=== PATIENT | male | born 1995 | race Caucasian/White ===

== ENCOUNTER 2016-12-20 21:06 | Emergency (ER) | payer SELFPAY ==
--- NOTE | 2016-12-20 21:36 | ED CLINICAL REPORT ---
Clinical Report - Physicians/Mid Levels [facility] [address] [place] [address] 12/20/2016 21:08 Patient: EDUIN BROWN Time Seen: 21:16; initial patient contact. Arrived- By private vehicle. Historian- patient. HISTORY OF PRESENT ILLNESS Chief Complaint: SKIN RASH. This started about 1 week ago and is still present. It is described as itchy. Not painful. It has been generalized in location (Genital). A possible cause has been identified. No recent medication or insect bite. Similar symptoms previously: Many times. Recent medical care: Not recently seen/assessed. REVIEW OF SYSTEMS No fever or chills. He has had genital lesion(s). All systems otherwise negative, except as recorded above. PAST HISTORY Negative. Problems: no known problems. Surgeries: No history of previous surgery. Additional Surgeries: no known surgeries. Medications: None. Allergies: None. SOCIAL HISTORY Current every day smoker. History of drug use: heroin, methamphetamines. ADDITIONAL NOTES The nursing notes have been reviewed. PHYSICAL EXAM Vital Signs: 12/20/2016 21:16 BP: 111/69. HR: 88. RR: 15. O2 saturation: 98%. Temp: 98.4 F. Pain level now: 0/10. Have been reviewed as normal. Appearance: Alert. Oriented X3. No acute distress. Skin: Rash present on the penis (genital warts). Neuro: Oriented X 3. No motor deficit. PROGRESS AND PROCEDURES Disposition: Discharged home in good and improved condition. Condition: good. CLINICAL IMPRESSION Genital lesion- condyloma acuminatum. INSTRUCTIONS Your Current Medications: CONTINUE TAKING THE FOLLOWING MEDICATIONS: None*. Prescription Medications: Podofilox Topical 0.5% Apply to affected area BID for 3 days followed by 4 days of no treatment. May repeat up to 4 cycles Disp 3.5 mL No refills. Follow-up: Screening today revealed the patient's blood pressure to be in the normal range. Follow-up with: Juanito Begum MD, Urology, , [address], [id number] Follow up in about two weeks. Call for an appointment. (Electronically signed by Latrell Olivares Dr. 12/20/2016 21:47)
--- NOTE | 2016-12-20 21:36 | ED CLINICAL REPORT ---
Clinical Report - Physicians/Mid Levels [facility] [address] [place] [address] 12/20/2016 21:08 Patient: EDUNI BROWN Time Seen: 21:16; initial patient contact. Arrived- By private vehicle. Historian- patient. HISTORY OF PRESENT ILLNESS Chief Complaint: SKIN RASH. This started about 1 week ago and is still present. It is described as itchy. Not painful. It has been generalized in location (Genital). A possible cause has been identified. No recent medication or insect bite. Similar symptoms previously: Many times. Recent medical care: Not recently seen/assessed. REVIEW OF SYSTEMS No fever or chills. He has had genital lesion(s). All systems otherwise negative, except as recorded above. PAST HISTORY Negative. Problems: no known problems. Surgeries: No history of previous surgery. Additional Surgeries: no known surgeries. Medications: None. Allergies: None. SOCIAL HISTORY Current every day smoker. History of drug use: heroin, methamphetamines. ADDITIONAL NOTES The nursing notes have been reviewed. PHYSICAL EXAM Vital Signs: 12/20/2016 21:16 BP: 111/69. HR: 88. RR: 15. O2 saturation: 98%. Temp: 98.4 F. Pain level now: 0/10. Have been reviewed as normal. Appearance: Alert. Oriented X3. No acute distress. Skin: Rash present on the penis (genital warts). Neuro: Oriented X 3. No motor deficit. PROGRESS AND PROCEDURES Disposition: Discharged home in good and improved condition. Condition: good. CLINICAL IMPRESSION Genital lesion- condyloma acuminatum. INSTRUCTIONS Your Current Medications: CONTINUE TAKING THE FOLLOWING MEDICATIONS: None*. Prescription Medications: Podofilox Topical 0.5% Apply to affected area BID for 3 days followed by 4 days of no treatment. May repeat up to 4 cycles Disp 3.5 mL No refills. Follow-up: Screening today revealed the patient's blood pressure to be in the normal range. Follow-up with: Juanito Begum MD, Urology, , [address] [facility], [id number] Follow up in about two weeks. Call for an appointment. (Electronically signed by Latrell Olivares Dr. 12/20/2016 21:47)
--- NOTE | 2016-12-20 21:36 | ED NURSING NOTES ---
Clinical Report - Nurses [facility] [address] [place] [address] 12/20/2016 21:08 Patient: EDUIN BROWN TRIAGE Triage time 21:16 Dec 20 2016. Chief Complaint: GENITAL LESION and ("I have warts on my foreskin" pt had them "froze, but I never followed up"). Alert. No acute distress. --21:22 Guy Kenny R.N. 21:16 12/20/16. BP: 111/69. HR: 88. RR: 15. O2 saturation: 98%. Temp: 98.4 F. Pain level now: 0/10. --21:22 Guy Kenny R.N. Weight: 68 kg stated. Height/Length: 72 inches Per Patient. BMI: 20.3. --21:17 Guy Kenny R.N. Medications None. --21:17 Guy Kenny R.N. Medication/allergy information source: the patient. --21:22 Guy Kenny R.N. Allergies None. --21:17 Guy Kenny RKia History Historian: patient. This is a recurrent problem. (2 months). No testicular pain, discomfort with urination or urgency of urination. Able to void. 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 PAST MEDICAL HX: Immunizations: up-to-date. SOCIAL HX: Smoker- current status unknown (cigarette). History of drug use: heroin, methamphetamines, marijuana. No alcohol use. ABUSE ASSESSMENT: No report of abuse. SELF HARM ASSESSMENT: A self harm assessment was performed. The patient answered "no" to the question "Do you have thoughts of harming or killing yourself?". FALL RISK ASSESSMENT: Fall risk assessment completed. No fall risk identified. NUTRITIONAL RISK ASSESSMENT: The nutritional risk assessment revealed no deficiencies. FUNCTIONAL ASSESSMENT: Functional assessment: no impairments noted. LEARNING NEEDS ASSESSMENT: The learning needs assessment revealed no barriers. SKIN INTEGRITY ASSESSMENT: Skin integrity risk assessment completed. No skin integrity risk identified. --21:22 Guy Kenny R.N. PROBLEMS: no known problems. ADDITIONAL SURGERIES: no known surgeries. Interventions ID band on patient. To treatment room. --21:22 Guy Kenny R.N. PHYSICAL ASSESSMENT Ambulatory to room. Patient gowned. GENERAL / NEURO / PSYCH: Alert. Oriented X 4. Appears in no acute distress. RESPIRATORY: Respirations not labored. CVS: Normal heart rate and rhythm. GI / : Abdomen soft. Genital lesion present. SKIN: Skin is warm and dry. --21:22 Guy Kenny R.N. NURSING PROGRESS NOTES Call light placed in reach. Side rails up. Bed placed in lowest position. Brakes of bed on. --21:23 Guy Kenny R.N. DISPOSITION / DISCHARGE Condition at departure: unchanged. No learning barriers present. Discharge instructions provided and reviewed with the patient. Reviewed medication(s) side effects, precautions, dosing and course information. Prescription(s) given to the patient. Patient verbalized understanding. Written instructions provided in Mongolian. The patient was discharged by the physician. He was discharged home. He left the Emergency Department ambulatory. --21:46 Guy Kenny R.N. 21:45 12/20/16. BP: deferred. HR: deferred. RR: deferred. O2 saturation: deferred. Temp: deferred. Pain level now: 0/10. --21:46 Gyu Kenny R.N. Locked/Released at 12/23/2016 23:37 by Guy Kenny R.N.
--- NOTE | 2016-12-20 21:36 | ED NURSING NOTES ---
Clinical Report - Nurses [facility] [address] [place] [address] 12/20/2016 21:08 Patient: EDUIN BROWN TRIAGE Triage time 21:16 Dec 20 2016. Chief Complaint: GENITAL LESION and ("I have warts on my foreskin" pt had them "froze, but I never followed up"). Alert. No acute distress. --21:22 Guy Kenny R.N. 21:16 12/20/16. BP: 111/69. HR: 88. RR: 15. O2 saturation: 98%. Temp: 98.4 F. Pain level now: 0/10. --21:22 Guy Kenny R.N. Weight: 68 kg stated. Height/Length: 72 inches Per Patient. BMI: 20.3. --21:17 Guy Kenny R.N. Medications None. --21:17 Guy Kenny R.N. Medication/allergy information source: the patient. --21:22 Guy Kenny R.N. Allergies None. --21:17 uGy Kenny RKia History Historian: patient. This is a recurrent problem. (2 months). No testicular pain, discomfort with urination or urgency of urination. Able to void. 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 PAST MEDICAL HX: Immunizations: up-to-date. SOCIAL HX: Smoker- current status unknown (cigarette). History of drug use: heroin, methamphetamines, marijuana. No alcohol use. ABUSE ASSESSMENT: No report of abuse. SELF HARM ASSESSMENT: A self harm assessment was performed. The patient answered "no" to the question "Do you have thoughts of harming or killing yourself?". FALL RISK ASSESSMENT: Fall risk assessment completed. No fall risk identified. NUTRITIONAL RISK ASSESSMENT: The nutritional risk assessment revealed no deficiencies. FUNCTIONAL ASSESSMENT: Functional assessment: no impairments noted. LEARNING NEEDS ASSESSMENT: The learning needs assessment revealed no barriers. SKIN INTEGRITY ASSESSMENT: Skin integrity risk assessment completed. No skin integrity risk identified. --21:22 Guy Kenny R.N. PROBLEMS: no known problems. ADDITIONAL SURGERIES: no known surgeries. Interventions ID band on patient. To treatment room. --21:22 Guy Kenny R.N. PHYSICAL ASSESSMENT Ambulatory to room. Patient gowned. GENERAL / NEURO / PSYCH: Alert. Oriented X 4. Appears in no acute distress. RESPIRATORY: Respirations not labored. CVS: Normal heart rate and rhythm. GI / : Abdomen soft. Genital lesion present. SKIN: Skin is warm and dry. --21:22 Guy Kenny R.N. NURSING PROGRESS NOTES Call light placed in reach. Side rails up. Bed placed in lowest position. Brakes of bed on. --21:23 Guy Kenny R.N. DISPOSITION / DISCHARGE Condition at departure: unchanged. No learning barriers present. Discharge instructions provided and reviewed with the patient. Reviewed medication(s) side effects, precautions, dosing and course information. Prescription(s) given to the patient. Patient verbalized understanding. Written instructions provided in Wolof. The patient was discharged by the physician. He was discharged home. He left the Emergency Department ambulatory. --21:46 Guy Kenny R.N. 21:45 12/20/16. BP: deferred. HR: deferred. RR: deferred. O2 saturation: deferred. Temp: deferred. Pain level now: 0/10. --21:46 Guy Kenny R.N. Locked/Released at 12/23/2016 23:37 by Guy Kenny R.N.
--- NOTE | 2016-12-23 23:38 | ED MED RECONCILIATION SUMMARY ---
Patient: EDUIN BROWN Medication Reconciliation Report [facility] VisitID: [id number] [address] [place] [address] 21y, M Registration Date/Time: 12/20/2016 Weight: 68.0 kg Height/Length: 72 in. BMI: 20.3 ALLERGIES: None The patient's Home Medications are listed below: NONE. The source(s) of the original Home Medication information: patient The following Medications were given to the patient in the Emergency Department: None. The following Medications were prescribed to the patient: Podofilox Topical 0.5%Apply to affected area BID for 3 days followed by 4 days of no treatment. May repeat up to 4 cyclesDisp 3.5 mLNo refills. -- Latrell Olivares Dr.
--- NOTE | 2016-12-23 23:38 | ED DISCHARGE INSTRUCTIONS ---
Patient: EDUIN BROWN General Instructions [facility] VisitID: [id number] [place] [address] 21y, M Registration Date/Time: 12/20/2016 Genital lesion- condyloma acuminatum. INSTRUCTIONS Your Current Medications: CONTINUE TAKING THE FOLLOWING MEDICATIONS: None*. Prescription Medications: Podofilox Topical 0.5% Apply to affected area BID for 3 days followed by 4 days of no treatment. May repeat up to 4 cycles Disp 3.5 mL No refills. Follow-up: Screening today revealed the patient's blood pressure to be in the normal range. Follow-up with: Juanito Begum MD, Urology, , [address] [facility] [place], [id number] Follow up in about two weeks. Call for an appointment. ADDITIONAL INFORMATION Genital Warts Genital warts are painless single or grouped bumps with a flat or rough surface. They occur on the penis, scrotum, vagina, vulva and anus. After exposure to a partner with genital warts, there is about a 60% chance that an infection will occur. It takes about 3 weeks to 3 months for most warts to appear after exposure. However, sometimes a wart may not appear until many years after exposure. This makes it difficult to know exactly who you got the infection from. For this reason, a new genital wart infection does not mean that you or your partner has been unfaithful in the relationship. Genital warts are caused by the human papilloma virus (HPV). This is the most common sexually transmitted disease (STD) in the [place] Over half of all sexually active men and women become infected with HPV at some time in their lives. Most people who become infected with HPV will not have any warts, but they can still transmit the virus. There about 30 types of HPVthat can cause genital warts. Most cause no other problems. However, a few types of HPV can infect a womans cervix. If a cervical infection with one of these viruses goes undiagnosed and untreated, the woman is at increased risk for having cervical cancer. It takes many months to years for signs of cancer to develop from an HPV virus infection of the cervix. However, women with genital warts and women with a partner who has genital warts should be sure they receive regular Pap smear testing to check for changes that may lead to cervical cancer. Most warts go away on their own within 12 months, without treatment. However, treatments are available to remove the warts sooner and reduce the risk of spread to others. There are many types of wart treatments (freezing, cutting, laser, applying liquid or gel to dissolve it). About half the time more than one treatment session is needed to make the wart go away. But even after the wart is gone, the virus remains in the skin and a recurrence of the wart is possible. An HPV vaccine is currently available. Vaccination protects against certain strains of HPV that cause genital warts and cervical cancer. Even though you have HPV, being vaccinated could help protect you from getting other types of HPV in the future. This is true for your partner as well. Ask your healthcare provider if getting vaccinated makes sense for you. Urge your partner to also ask about getting vaccinated. Home Care: If you have been prescribed an ointment or gel to treat the wart, apply it exactly as directed. Be careful not to get it on the nearby normal skin. After treatment, keep the area clean and dry. Wear loose-fitting cotton underwear to avoid chafing. If you have pain after treatment, sit in a tub with a few inches of warm water for 20 minutes, 3 times a day, for the next 2 to 3days. Add a cup of cornstarch or baking soda, or a packet of Aveeno Oatmeal or Domeboro powder (both available without a prescription), to soothe the skin. Preventing Spread To Others: This virus is spread by sexual contact with someone who is infected.The risk of spread is highest when visible warts are present. However, there is a very small chance of spreading the virus even after treatment, when the wart is not visible. Condoms offer only limited protection from the spread of warts. Partners tend to share the same HPV types, so it is probably not necessary to refrain from sex with your current partner. However, do not have sex with any new partner until all visible warts are gone. Men should inform current and future sexual partners that they have had genital warts. This way, the woman can be sure to have regular Pap smear testing with her doctor. Follow-Up: Persons who have just learned that they have genital warts may feel guilt, anger, and be emotionally upset. Getting the facts helps put you back in control. Follow up with your doctor or the Public Health Department for complete STD screening, including HIV testing. For more information call the National STD Hotline: 277.263.5627. After treatment, you should be rechecked in about 3 months to be sure all warts are gone. Get Prompt Medical Attention if any of the following occur: After treating a wart: Redness or burning that does not stop within a few hours Swelling of the tissues around the treated area Pus draining from the treated area Difficulty passing urine or stool Discharge from the vagina or penis Rash or joint pain You have been given the following additional information: Warts, Genital (Electronically signed by Latrell Olivares Dr. 12/20/2016 21:47)
--- NOTE | 2016-12-23 23:38 | ED MAR SUMMARY ---
..... Medication Administration Record [facility] [address] [place], [place] [id number] Patient: EDUIN BROWN Visit ID: [id number] 21y, M Weight: 68.0 kg Height/Length: 72 in BMI: 20.3 ALLERGIES: None
--- NOTE | 2016-12-23 23:38 | ED MAR SUMMARY ---
..... Medication Administration Record [facility] [address] [place], [place] [id number] Patient: EDUIN BROWN Visit ID: [id number] 21y, M Weight: 68.0 kg Height/Length: 72 in BMI: 20.3 ALLERGIES: None
--- NOTE | 2016-12-23 23:38 | ED MED RECONCILIATION SUMMARY ---
Patient: EDUIN BROWN Medication Reconciliation Report [facility] VisitID: [id number] [address] [place] [address] 21y, M Registration Date/Time: 12/20/2016 Weight: 68.0 kg Height/Length: 72 in. BMI: 20.3 ALLERGIES: None The patient's Home Medications are listed below: NONE. The source(s) of the original Home Medication information: patient The following Medications were given to the patient in the Emergency Department: None. The following Medications were prescribed to the patient: Podofilox Topical 0.5%Apply to affected area BID for 3 days followed by 4 days of no treatment. May repeat up to 4 cyclesDisp 3.5 mLNo refills. -- Latrell Olivares Dr.
== END 2016-12-20 21:44 | disposition home or self-care (01) ==
LOC: ED SRH 21:06
DX: A63.0 Anogenital (venereal) warts (principal); F17.210 Nicotine dependence, cigarettes, uncomplicated